=== PATIENT | male | born 1930 | race Caucasian/White ===

== ENCOUNTER 2018-02-17 09:37 | Emergency (ER) | payer MEDICARE, OTHER ==
[~2018-02-17] VITALS: Ht 172.7 cm; Wt 72.6 kg
[2018-02-17] MEDS ORDERED: ATORVASTATIN 40 MG PO (09:54)
[2018-02-17] MEDS ORDERED: TABL PO (09:54)
[2018-02-17] MEDS ORDERED: BICALUTAMIDE 50 MG PO (09:54)
[2018-02-17] MEDS ORDERED: CLOPIDOGREL 75MG TABLETS PO (09:54)
[2018-02-17] MEDS ORDERED: LISINOPRIL HCTZ PO (09:54)
[2018-02-17] MEDS ORDERED: SODIUM FLUORIDE PO (10:04)
[2018-02-17] MEDS ORDERED: SHINGRIX (10:04)
[2018-02-17] MEDS ORDERED: IPRATROPIUM 0.03% (10:04)
[2018-02-17] MEDS ORDERED: ACETAMINOPHEN ES 500 MG TABLET ONE (10:08)
[2018-02-17] MEDS ORDERED: ACETAMINOPHEN ES 500 MG TABLET PO ONE (10:15)
[2018-02-17] MEDS ORDERED: ZOLP5TAB2 PO (10:40)
--- NOTE | 2018-02-17 11:08 | NUR ---
Patient discharged to home in stable conditon. Written and verbal after care instructions given. Patient verbalizes understanding of instructions.
== END 2018-02-17 11:09 | disposition home or self-care (01) ==
LOC: ER 09:37
DX: S43.101A Unspecified dislocation of right acromioclavicular joint, initial encounter (principal); S51.011A Laceration without foreign body of right elbow, initial encounter; S09.90XA Unspecified injury of head, initial encounter; I10 Essential (primary) hypertension; Z86.73 Personal history of transient ischemic attack (TIA), and cerebral infarction without residual deficits; W18.30XA Fall on same level, unspecified, initial encounter; Y93.89 Activity, other specified; Y92.89 Other specified places as the place of occurrence of the external cause; Y99.8 Other external cause status; Z90.79 Acquired absence of other genital organ(s); Z85.46 Personal history of malignant neoplasm of prostate
CPT/HCPCS: 70450; 73030; 99284; A4663; A9150

== ENCOUNTER 2018-02-18 05:48 | Emergency (ER) | payer MEDICARE, OTHER ==
[~2018-02-18] VITALS: Ht 170.2 cm; Wt 65.8 kg
[~2018-02-18 05:48] MED LIST: ATORVASTATIN 40 MG PO; BICALUTAMIDE 50 MG PO; CLOPIDOGREL 75MG TABLETS PO; IPRATROPIUM 0.03%; LISINOPRIL HCTZ PO; SHINGRIX; SODIUM FLUORIDE PO; TABL PO; ZOLP5TAB2 PO
--- NOTE | 2018-02-18 06:15 | NUR ---
doctor neil at bedside ,examined and checked right elbow laceration sustained s/p fall .discussed with patient and patient daughter plan of treatment and dressing .
[2018-02-18] MEDS ORDERED: MISCELLANEOUS MED TP ONE (06:30)
--- NOTE | 2018-02-18 06:40 | NUR ---
wound dressing done aseptically as per md Lisette KENT recommendation .new armsling large size placed teaching and instruction given to patient on how to use armsling . .
[2018-02-18 06:57] VITALS: BP 128/58
--- NOTE | 2018-02-18 07:01 | NUR ---
Patient discharged to home in stable conditon. Written and verbal after care instructions given. Patient verbalizes understanding of instructions.v/s wnl no respiratory distress breathing even and unlabored .extra dressing supplies provided .went home with daughter.
== END 2018-02-18 07:03 | disposition home or self-care (01) ==
LOC: ER 05:51
DX: S41.011A Laceration without foreign body of right shoulder, initial encounter (principal); I10 Essential (primary) hypertension; Z86.73 Personal history of transient ischemic attack (TIA), and cerebral infarction without residual deficits; W19.XXXA Unspecified fall, initial encounter; Y93.89 Activity, other specified; Y92.89 Other specified places as the place of occurrence of the external cause; Y99.8 Other external cause status
CPT/HCPCS: 99283; A4663